=== PATIENT | female | born 1940 | race Caucasian/White ===

== ENCOUNTER 2019-07-08 14:47 | Inpatient (IN) | payer MEDICARE, BC ==
[2019-07-08] MEDS ORDERED: Fentanyl 100 MCG/2 ML VIAL ONE (15:16)
--- NOTE | 2019-07-08 15:56 | CT ---
Head CT without contrast 07/08/2019: Comparison: None HISTORY: Fall, trauma, pain TECHNIQUE: Axial CT imaging at 5 mm intervals from vertex through skull base without contrast FINDINGS: The visualized paranasal sinuses and mastoid air cells are well aerated. There is no displaced calvarial fracture. No intracranial hemorrhage, midline shift, or mass effect noted. There is atherosclerotic calcification of the distal left vertebral artery and of bilateral cavernous carotid arteries. There is mild left frontal scalp swelling. IMPRESSION: No intracranial hemorrhage or displaced calvarial fracture.
--- NOTE | 2019-07-08 16:06 | CT ---
CT of thecervical spine: 07/08/2019 COMPARISON:None available HISTORY:Trauma, pain TECHNIQUE: Serial axial CT imaging at2.5 mm intervals from theskull base through lung apices without contrast. Coronal and sagittal reformatted imaging obtained Findings:Nonspecific incompletely assessed reticulonodular opacities are noted within the lung apices , left greater than right. Nonemergent follow-up chest CT is suggested. The occipital condyles, the dens, the craniocervical junction, the atlantoaxial interspace, and the c ervicothoracic junction demonstrate no acute findings. There is multilevel degenerative change within the cervical spine. This includes posterior osteophyte at C3-4 as well as disc space narrowing with degenerative endplate change as well as anterior and posterior osteophyte at C4-5, C5-6, and C6-7. Bilateral multilevel mid and lower cervical spine facet and uncovertebral osteophyte formation noted, left greater than right. There is no prevertebral soft tissue swelling. No displaced fracture or evidence of dislocation. Ther e is scattered atherosclerotic calcification of the carotid vasculature, incompletely assessed on this exam. Impression:No acute osseous abnormality. Multiple incidental findings as detailed above.
--- NOTE | 2019-07-08 16:20 | RAD ---
NO DICTATION Dr. Gonzalez, no dictation is coming across. All your reports so far have 4473.92 minutes. Please diana ck on your end for the problem. POS: MISSY
--- NOTE | 2019-07-08 16:30 | RAD ---
Frontal radiograph chest: 07/08/2019 COMPARISON: 07/29/2016 HISTORY: Trauma FINDINGS: Reticular nodular densities are noted within bilateral lung apices, similar when compared t o the prior exam. The most conspicuous nodular density is in the lateral aspect of the right upper lobe, measuring approximately 1.3 cm in transverse dimension, slightly more conspicuous than on the p rior exam. These could be better assessed with a nonemergent follow-up chest CT. No pneumothorax or pleural fluid is noted. No focal consolidation or alveolar edema. IMPRESSION: No focal consolidation or alveolar edema. Reticulonodular densities are noted in the lung apices, right greater than left, similar when compared to the prior exam. This includes a nodular opacity within the lateral right upper lobe which appears slightly more prominent than on the prior e xam. Recommend further assessment via nonemergent chest CT.
[2019-07-08 16:39] LABS: #Basophils 0.1 thou/uL (0.0-0.2); #Eosinphils 0.1 thou/uL (0.0-0.7); #Monocytes 0.6 thou/uL (0.11-0.59); #Neutrophils 7.9 thou/uL (1.40-6.50); %Basophils 0.7 % (0.0-1.0); %Eosinophils 1.3 % (0.0-10.0); %Lymphocytes 10.5 % (21.0-51.0); %Monocytes 6.1 % (0.0-10.0); %Neutrophils 81.4 % (42.0-75.0); Mean Corpuscular HGB CONC 33.1 g/dL (32.0-36.0); Mean Corpuscular Hemoglobin 30.3 pg (27.0-31.0); Mean Corpuscular Volume 91.5 fL (78.0-98.0); Mean Platelet Volume 8.7 fL (7.4-10.4); Platelet Count 190 thou/uL (130-400); Red Blood Cell (RBC) Count 3.98 mill/uL (4.20-5.40); White Blood Cell (WBC) Count 9.7 thou/uL (4.8-10.8)
[2019-07-08 16:46] LABS: PTT 26.9 SEC (22.9-36.1); Prothrombin Time 12.9 SEC (12.0-14.7)
[2019-07-08 17:06] LABS: ALT (SGPT) 13 U/L (8-55); AST (SGOT) 20 U/L (5-34); Albumin 3.8 g/dL (3.4-4.8); Alkaline Phosphatase 55 U/L (40-110); Anion Gap 10 mmol/L (10-20); BUN (Urea Nitrogen) 20 mg/dL (9.8-20.1); Bilirubin, Total 0.7 mg/dL (0.2-1.2); Calc. Creatinine Clearance 0 mL/min (70-130); Calcium 8.6 mg/dL (7.8-10.44); Carbon Dioxide 28 mmol/L (23-31); Chloride 100 mmol/L (98-107); Estimated GFR-MDRD 66; Globulin 2.7 g/dL (2.4-3.5); Glucose 113 mg/dL (83-110); Potassium 3.6 mmol/L (3.5-5.1); Protein, Total 6.5 g/dL (6.0-8.3); Sodium 134 mmol/L (136-145)
[2019-07-08] MEDS ORDERED: traMADol HCl 50 MG TAB ONE (17:28)
[2019-07-08] MEDS ORDERED: Morphine 4 MG/ML VIAL ONE (17:29)
[2019-07-08] MEDS ORDERED: Cyclobenzaprine 10 MG TAB ONE (17:29)
[2019-07-08 17:32] LABS: Magnesium 1.7 mg/dL (1.6-2.6); Phosphorus 2.1 mg/dL (2.3-4.7)
[2019-07-08] MEDS ORDERED: Ondansetron ODT 4 MG TAB PO PRN (17:48)
[2019-07-08] MEDS ORDERED: Dextrose 5% in Water 1,000 ML IV PRN (17:48)
[2019-07-08] MEDS ORDERED: hydrALAZINE 20 MG/ML VIAL SLOW IVP PRN (17:48)
[2019-07-08] MEDS ORDERED: Dextrose 50% Abboject 50 ML SYRINGE SLOW IVP PRN (17:48)
[2019-07-08] MEDS ORDERED: Morphine 2 MG/ML SYRINGE SLOW IVP PRN (17:48)
[2019-07-08] MEDS ORDERED: Ondansetron PF 4 MG/2 ML Vial IVP PRN ×2 (17:48→18:05)
[2019-07-08] MEDS ORDERED: Bacitracin 1 PK ONE (17:55)
[2019-07-08] MEDS ORDERED: Sodium Chloride 0.9% 1,000 ML IV SCH (18:00)
[2019-07-08] MEDS ORDERED: Ibuprofen 600 MG TAB PO PRN (18:05)
[2019-07-08] MEDS ORDERED: traMADol HCl 50 MG TAB PO PRN (18:05)
[2019-07-08] MEDS ORDERED: Cyclobenzaprine 10 MG TAB PO PRN (18:06)
[2019-07-08] MEDS ORDERED: traMADol HCl 50 MG TAB PO SCH (18:30)
[2019-07-08] MEDS ORDERED: Potassium Phosphate 30 MMOL in Sodium Chloride 0.9% 500 ML IVPB SCH (18:30)
[2019-07-08] MEDS ORDERED: Acetaminophen 500 MG TAB PO SCH (18:30)
--- NOTE | 2019-07-08 19:26 | HP ---
CONSULTS: Orthopedic Surgery, Dr. Hays. CHIEF COMPLAINT: Ground level fall. HISTORY OF PRESENT ILLNESS: This is an 78-year-old female, who presented to the emergency room with left leg pain after falling in her garage. The patient states that she lives at home alone and was walking in her garage when she lost her balance due to an uneven area on the ground causing her to fall. The patient did report bumping her head on her car, but no loss of consciousness. The patient recalls the events. The patient denies any chest pain, dizziness, or shortness of breath prior to event. The patient reports she has been well, and denies any recent fever, chills, body aches, or illness. The patient ambulates without any assistance devices. The patient was evaluated in the emergency room and found to have a left distal femur fracture. Trauma Services was asked to admit the patient. Orthopedic Services was also consulted. The patient is currently awake, alert, in moderate amount of distress due to left leg pain and spasms. The patient last had anything to eat or drink at 11 today. REVIEW OF SYSTEMS: A 10-point review of systems is negative unless otherwise indicated in the above HPI. PAST MEDICAL HISTORY: Atrial fibrillation with multiple ablations, hypertension , hypothyroidism, and recent removal of melanoma on her posterior scalp. PAST SURGICAL HISTORY: Back surgery and cardiac ablation. SOCIAL HISTORY: The patient lives in her home alone. Retired nurse. Denies any illicit drug use. The patient is a former smoker, in which she quit more than 10 years ago. Denies alcohol use. ALLERGIES: NO KNOWN DRUG ALLERGIES. MEDICATIONS: 1. Aspirin 81 mg daily. 2. Synthroid 75 mcg once a day. 3. Metoprolol extended release 50 mg at bedtime. 4. Hydrochlorothiazide 25 mg once a day. 5. Crestor 10 mg daily. 6. Zyrtec 10 mg daily. PHYSICAL EXAMINATION: VITAL SIGNS: Blood pressure 160/83, pulse 80, respirations 16, temperature 97.6 , and SpO2 96% on room air. GENERAL: Well-appearing 78-year-old female, moderate amount of distress due to left thigh pain. HEENT AND NECK: Normocephalic. Left forehead contusion and abrasion. Midface stable. Mucous membranes moist. No cervical spine tenderness. Normal range of motion of neck. Cervical collar removed. Trachea midline. Tiny abrasion also to the left zygomatic region. RESPIRATORY: Equal chest rise and fall. Bilateral breath sounds clear. No wheezing, rales, or rhonchi. CARDIOVASCULAR: Regular rate, regular rhythm. No pedal edema. No murmurs. ABDOMEN: Soft, nontender, and nondistended. Pelvis stable. EXTREMITIES: Moves all extremities. Strength 5/5. Distal pulses intact. Normal sensation in all extremities. Tenderness to mid left thigh with some shortening and external rotation. NEUROLOGIC: No focal deficits, GCS 15. LABORATORY DATA: WBC 9.7, RBC 3.98, hemoglobin 12.0, hematocrit 36.4, and platelets 190. Sodium 134, potassium 3.6, chloride 100, carbon dioxide 28, BUN 20, creatinine 0.83, estimated GFR 66, glucose 113, calcium 8.6, phosphorus 2.1, magnesium 1.7 , AST 20, ALT 13, and albumin 3.8. DIAGNOSTICS: 12-lead EKG, normal sinus rhythm. Chest x-ray, impression; reticular nodule densities are noted within the bilateral lung apices, similar when compared to prior exam. There is a 1.3 cm transverse dimension nodular density in the lateral aspect of the right upper lobe, slightly more prominent than on prior exam. No focal consolidation or alveolar edema. Recommended further assessment via nonemergent chest CT. Brain CT; impression, no intracranial hemorrhage or displaced calvarial fracture. There is mid left frontal scalp swelling. Cervical spine CT, no acute osseous abnormalities. There are multiple incidental findings, posterior osteophyte at C3-4 as well as disk space narrowing of degenerative endplate change as well as anterior and posterior osteophyte at C4- C5, C5-C6 and C6-C7. There is no prevertebral soft tissue swelling. No displaced fracture or evidence of dislocation. Left femur x-ray; impression, left distal femur fracture pending official read. IMPRESSION: 1. Status post ground level fall. 2. Left spiral distal femur fracture. 3. Acute traumatic pain. 4. Hyponatremia. 5. Incidental findings, 1.3 cm nodular on the right upper lobe. 6. History of hypertension; hypothyroidism; degenerative joint disease; atrial fibrillation, treated with ablation; and melanoma of the scalp. PLAN: Admit the patient to the surgical floor. The patient will be n.p.o. after midnight with plans for OR tomorrow with Orthopedic Surgery. Maintenance IV fluids, normal saline 100 an hour. We will restart the patient's home medications once all medications have been reconciled. Replace electrolytes. Pain regimen and bowel regimen. PT and OT consult to evaluate and treat postop. We will instruct the patient on the need for a nonemergent chest CT due to findings on her chest x- ray. The plan was discussed with the attending who agrees. Job ID: [id number] MTDD
--- NOTE | 2019-07-08 19:47 | CT ---
CT LEFT LOWER EXTREMITY: 07/08/19 Multiple axial tomograms obtained through the left femur from hip to left knee. INDICATIONS: Femur fracture. The hip appears intact with degenerative changes. There is an obliquely oriented displaced, mildly comminuted fracture involving the distal femur. IMPRESSION: Obliquely oriented mildly comminuted fracture distal femur. Fracture is imaged in all three planes fo r orthopedic evaluation. POS: [facility]
[2019-07-08] MEDS: Gabapentin 100 MG CAP PO SCH (20:53)
[2019-07-08] MEDS: Senokot S 8.6-50 MG TAB PO SCH (20:53)
[2019-07-08 23:21] VITALS: BMI 34.0
--- NOTE | 2019-07-08 23:31 | CON ---
DATE OF CONSULTATION: REASON FOR CONSULTATION: Left distal femur fracture. CHIEF COMPLAINT: Left knee pain. HISTORY OF PRESENT ILLNESS: Ms. Munoz is an 78-year-old female who was transferred to the emergency department via EMS with left leg pain. The patient reported that she had a ground level fall at home. She reports that the patient was walking in her garage and upon entering the garage, there was a small step up, her foot caught the edge of the step and she fell on to her left lower extremity. She had immediate left lower extremity pain, unable her to rise to a standing position. The patient does live alone and EMS was called and she was transferred to the emergency department. Upon evaluation in the emergency department, it was found she had a left lower extremity fracture involving the left distal femur. Orthopedics was consulted. The patient was seen and evaluated where H and P was performed. ALLERGIES: NO KNOWN DRUG ALLERGIES. MEDICATIONS: For hypothyroidism, mild hypertension. PAST MEDICAL HISTORY: Hypothyroidism, borderline hypertension. PAST SURGICAL HISTORY: 1. Lumbar spine surgery. 2. Mohs surgery for melanoma excision of the head. 3. 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 SOCIAL HISTORY: She lives alone, ambulates with assistive device. She is a retired nurse. Denies smoking, alcohol, or illicit drug use. FAMILY HISTORY: Noncontributory. REVIEW OF SYSTEMS: Complete 10 systems reviewed is negative with the exception of left thigh pain. PHYSICAL EXAMINATION: GENERAL: Alert and oriented x3, in no acute distress. RESPIRATORY: Nonlabored. HEENT: Nontraumatic and normocephalic. CARDIOVASCULAR: Regular rate. ABDOMEN: Soft, nontender, nondistended. MUSCULOSKELETAL: Evaluation of the left lower extremity demonstrates a shortened externally rotated left lower extremity. She has swelling of the left thigh. No open wound is noted. She has tenderness to palpation around the left knee. Passive range of motion of left hip and knee were not examined. She has positive FHL/ EHL/ and peroneal____ activation of the left lower extremity. Evaluation of the right lower extremity demonstrates no tenderness to palpation or pain on passive range of motion of the right hip, knee, ankle, or foot. Evaluation of bilateral upper extremities demonstrates no tenderness to palpation or pain on passive range of motion of bilateral shoulders, elbows, wrists, or hands. No open wounds, lacerations, or abrasions noted along bilateral upper extremity. NEUROVASCULAR: Sensation intact to light touch in L4 through S1 dermatomes of bilateral lower extremities. She had DP and PT pulses. Sensation intact to light touch in radial, ulnar, and median nerve distributions of bilateral upper extremities. 2+ radial pulses. IMAGING DATA: X-rays of the left femur demonstrates a spiral left distal femur fracture. No proximal fracture is noted. Chest x-ray demonstrates no focal consolidations. There is opacity within the lateral upper lobe, appears to be slightly more prominent than prior exams. CT of the head demonstrates no intracranial hemorrhage or fractures. CT of the C-spine demonstrates no acute abnormalities. X-ray of the left hip demonstrates no acute bony abnormalities of the left hip, evidence of degenerative changes of the left hip noted. LABORATORY DATA: Hemoglobin 12.0, white count is 9.7, hematocrit 36.4, platelets 190. Sodium is 134, potassium 3.6, chloride 100, bicarb 28, BUN 20, creatinine 0.83, glucose 113. PT 12.9, INR 1.0. ASSESSMENT AND PLAN: An 78-year-old female status post ground level fall with a left distal femur fracture. She will be admitted by the Trauma Services for medical optimization. We will plan for surgical intervention once the patient is medically optimized. We will obtain CT scan of the left lower extremity and ensure she does not have violation into the knee joint. As long as the patient is medically optimized, we will plan for surgical intervention in the next available opportunity. Our plans were discussed in detail with the patient. She verbalized understanding and wants to proceed. Job ID: [id number] [facility]
[2019-07-08] MEDS ORDERED: Non-Formulary Item 1 EACH (Fluticasone/Vilanterol [Breo Ellipta] 1 INH) INH PRN (23:54)
[2019-07-08] MEDS ORDERED: Mometasone 100 MCG/Formoterol 5 MCG 120 PUFF INHALER INH PRN (23:54)
[2019-07-09] MEDS: Acetaminophen 500 MG TAB PO SCH ×5 (00:13→20:50)
--- NOTE | 2019-07-09 00:13 | PRG ---
DATE OF SERVICE: 07/08/2019 SUBJECTIVE: The patient was seen this evening during rounds. She was lying in bed with no signs of acute distress. She reported her pain is well controlled and she is tolerating food. OBJECTIVE: VITAL SIGNS: Temperature 97.6, pulse 81, respirations 18, oxygen saturation 98% on room air, and blood pressure 155/87. GENERAL: Well-appearing elderly female, lying in bed with no signs of acute distress. PULMONARY: Equal chest rise and fall. No signs of acute respiratory distress. ASSESSMENT: 1. Status post ground level fall. 2. Left distal femur fracture. 3. History of hypertension, hypothyroidism, atrial fibrillation status post ablation, scalp melanoma, and previous back surgeries. PLAN: Continue current diet and n.p.o. at midnight. Continue IV fluids for a total of 1 L and then discontinue. We will complete the patient's med rec and restart her home medications as clinically indicated. She is to go to the OR tomorrow for fixation of her distal left femur fracture. Postoperatively, she will work with Physical and Occupational Therapy and likely need placement in acute rehab facility. Job ID: [id number] [facility]
[2019-07-09] MEDS: traMADol HCl 50 MG TAB PO SCH ×5 (00:14→20:51)
--- NOTE | 2019-07-09 04:56 | HP ---
ADDENDUM: CHIEF COMPLAINT: Left leg pain. HISTORY: Ms. Munoz is an 78-year-old woman, who caught her foot on uneven area of the janeen in garage and fell. She struck her head on the way down, but did not lose consciousness and had immediate pain in her left leg after the fall. She was found to have a comminuted distal left femur fracture. She is currently comfortable as long as she keeps the leg completely still. She has some bruising to her scalp, but head CT was negative and she feels mentally clear. PAST MEDICAL HISTORY: She does have a past medical history of hypertension and atrial fibrillation, and a recent removal of a melanoma from her scalp. PAST SURGICAL HISTORY: Includes back surgery, hysterectomy many years ago, multiple cardiac ablations and Mohs surgery for her melanoma. SOCIAL HISTORY: She is a former smoker, but does not drink or use illicit drugs. She lives alone, but has a daughter who lives nearby. ALLERGIES: SHE HAS NO KNOWN DRUG ALLERGIES. MEDICATIONS: Include; 1. Aspirin. 2. Synthroid. 3. Metoprolol. 4. Hydrochlorothiazide. 5. Crestor. 6. Zyrtec. She is not on any other blood thinners. REVIEW OF SYSTEMS: 10-system review of systems is negative except per HPI. FAMILY HISTORY: Noncontributory. PHYSICAL EXAMINATION: Complete physical examination was performed. VITAL SIGNS: In the emergency room are unremarkable. HEENT/NECK: Neck is supple without lymphadenopathy or thyroid nodules. She has some mild left frontal scalp swelling. Pupils are equal. No malocclusion. BACK: No spine tenderness. HEART: Regular. I do not appreciate any rubs or gallops, but she does have a soft systolic murmur at the left upper sternal border. LUNGS: Clear to auscultation bilaterally. ABDOMEN: Soft, nontender, nondistended with a healed lower midline scar. EXTREMITIES: Warm, well perfused with normal dorsalis pedis pulses bilaterally. She has normal sensation and movement in her left foot. NEUROLOGIC: She has no focal neural deficits. PSYCHIATRIC: She is alert, oriented, and appropriate. LABORATORY DATA: Reviewed and are basically unremarkable. Her BUN and creatinine are 20 and 0.83, which are normal. Phosphorus is slightly low at 2.1. CTs including brain and cervical spine CTs and plain films of the chest, pelvis, knee and a lower extremity CT revealed the above-mentioned distal left femur fracture. She was also incidentally noted to have a density in the right greater than left lung apices and a right upper lobe opacity, which appears slightly more prominent. She also had incidental findings of chronic changes in the cervical spine, but no acute fracture or subluxation. ASSESSMENT: Distal left femur fracture, incidentally noted lung densities and mild closed head injury. She is planned to be taken to the operating room tomorrow for open reduction and internal fixation of her femur fracture. She is on maintenance IV fluids, pain regimen, as well as a bowel regimen. She takes usually a half dose of MiraLAX daily at home. Postoperatively, she will receive physical therapy. The patient's wish is to go home with her daughter rather than rehab or care home, but this will depend on her progress with physical therapy. She has been informed of her chest x-ray findings, and need for nonemergent chest CT as an outpatient. Job ID: [id number] MTDD
[2019-07-09] MEDS: Levothyroxine Sodium 75 MCG TAB PO SCH (05:28)
[2019-07-09 06:02] LABS: #Eosinphils 0.1 thou/uL (0.0-0.7); #Lymphocytes 0.9 thou/uL (1.20-3.40); #Monocytes 0.5 thou/uL (0.11-0.59); #Neutrophils 6.2 thou/uL (1.40-6.50); %Basophils 0.5 % (0.0-1.0); %Eosinophils 0.7 % (0.0-10.0); %Lymphocytes 12.2 % (21.0-51.0); %Monocytes 6.8 % (0.0-10.0); %Neutrophils 79.9 % (42.0-75.0); Hemoglobin 10.7 g/dL (12.0-16.0); Mean Corpuscular HGB CONC 33.1 g/dL (32.0-36.0); Mean Corpuscular Hemoglobin 30.2 pg (27.0-31.0); Mean Platelet Volume 9.4 fL (7.4-10.4); Platelet Count 180 thou/uL (130-400); RBC Distribution Width 11.9 % (11.5-14.5); Red Blood Cell (RBC) Count 3.55 mill/uL (4.20-5.40); White Blood Cell (WBC) Count 7.8 thou/uL (4.8-10.8)
[2019-07-09 06:24] LABS: Anion Gap 10 mmol/L (10-20); BUN (Urea Nitrogen) 19 mg/dL (9.8-20.1); Calc. Creatinine Clearance 104 mL/min (70-130); Calcium 8.7 mg/dL (7.8-10.44); Carbon Dioxide 28 mmol/L (23-31); Chloride 98 mmol/L (98-107); Estimated GFR-MDRD 85; Glucose 118 mg/dL (83-110); Magnesium 1.7 mg/dL (1.6-2.6); Potassium 3.6 mmol/L (3.5-5.1); Sodium 132 mmol/L (136-145)
[2019-07-09 06:41] LABS: Phosphorus 3.4 mg/dL (2.3-4.7)
[2019-07-09] MEDS: Hydrochlorothiazide 25 MG TAB PO SCH (07:11)
[2019-07-09] MEDS: Gabapentin 100 MG CAP PO SCH ×3 (07:11→20:50)
[2019-07-09] MEDS: Loratadine 10 MG TAB PO SCH (07:11)
[2019-07-09] MEDS: Senokot S 8.6-50 MG TAB PO SCH ×3 (07:12→20:50)
[2019-07-09] MEDS: Polyethylene Glycol 3350 17 GM Packet PO SCH (07:12)
[2019-07-09] MEDS ORDERED: Magnesium 2 GM/50 ML 2 GM in Premix Bag 1 BAG IVPB SCH (07:30)
[2019-07-09] MEDS ORDERED: Phenylephrine 10 MG/ML VIAL ONE (07:51)
[2019-07-09] MEDS ORDERED: Fentanyl 100 MCG/2 ML VIAL ONE (07:51)
[2019-07-09] MEDS: Metoprolol Tartrate 50 MG TAB PO SCH (08:05)
[2019-07-09] MEDS ORDERED: Sodium Chloride 0.9% 100 ML ONE (08:29)
[2019-07-09] MEDS ORDERED: Tranexamic Acid 1,000 MG/10 ML VIAL ONE (08:29)
[2019-07-09] MEDS ORDERED: Cepastat Lozenges 1 LOZ PO PRN (08:39)
[2019-07-09] MEDS ORDERED: Ondansetron ODT 4 MG TAB PO PRN (08:39)
[2019-07-09] MEDS ORDERED: Milk Of Magnesia 30 ML UDCUP PO PRN (08:39)
[2019-07-09] MEDS ORDERED: Ondansetron PF 4 MG/2 ML Vial IVP PRN (08:39)
[2019-07-09] MEDS ORDERED: Acetaminophen 325 MG TAB PO PRN (08:39)
[2019-07-09] MEDS ORDERED: Fleet Enema 133 ML BOT PR PRN (08:39)
[2019-07-09] MEDS ORDERED: Bisacodyl 10 MG SUPP PR PRN (08:39)
[2019-07-09] MEDS ORDERED: PACU-Morphine 4MG/ML VIAL SLOW IVP PRN (09:29)
[2019-07-09] MEDS ORDERED: Promethazine HCl 25 MG/ML VIAL IM PRN (09:29)
[2019-07-09] MEDS ORDERED: Ondansetron HCl/PF 4 MG/2 ML Vial IVP PRN (09:29)
[2019-07-09] MEDS ORDERED: Promethazine HCl 25 MG/ML VIAL SLOW IVP PRN (09:29)
[2019-07-09] MEDS: Ferrous Gluconate 324 MG TAB PO SCH ×2 (09:39→20:49)
[2019-07-09] MEDS: Multivitamin W/ Minerals 1 TAB PO SCH (09:39)
[2019-07-09] MEDS ORDERED: Bupivacaine 0.25% HCL 30 ML VIAL ONE (10:45)
--- NOTE | 2019-07-09 10:57 | RAD ---
INTRAOPERATIVE IMAGING OF THE LEFT FEMUR: 07/09/2019 HISTORY: ORIF. COMPARISON: None. FINDINGS: Multiple intraoperative images were provided (10 total images), demonstrating an obliquely oriented f racture of the left femur, treated with an intramedullary yayo with distal and proximal interlocking s crews. IMPRESSION: Left femur fracture status post open reduction and internal fixation. POS: [facility]
[2019-07-09] MEDS ORDERED: Bupivacaine/Epinephrine 0.25% 30 ML VIAL ONE (10:58)
[2019-07-09] MEDS ORDERED: Lidocaine 1% PF 5 ML VIAL ONE (11:56)
[2019-07-09] MEDS ORDERED: Dexamethasone 20 MG/5 ML VIAL ONE (11:56)
[2019-07-09] MEDS ORDERED: Ondansetron PF 4 MG/2 ML Vial ONE (11:56)
[2019-07-09] MEDS ORDERED: Glycopyrrolate 0.2 MG/ML 5 ML SYRINGE ONE (11:56)
[2019-07-09] MEDS ORDERED: PROPOFOL 200 MG/20 ML VIAL ONE (11:56)
[2019-07-09] MEDS ORDERED: Rocuronium Bromide 10 MG/ML (10ML VIAL) ONE (11:56)
--- NOTE | 2019-07-09 12:33 | RAD ---
LEFT FEMUR TWO VIEWS: HISTORY: Femur fracture status post ORIF. COMPARISON: 07/09/19 FINDINGS: Two views of the left femur show the patient to be status post retrograde intramedullary yayo fixation of a spiral fracture of the distal femoral diaphysis. Overlying skin staple and soft tissue swelling are seen. No perihardware lucency is present. IMPRESSION: Status post open reduction and internal fixation of left femur fracture. POS: [facility]
--- NOTE | 2019-07-09 14:20 | PRG ---
DATE OF SERVICE: 07/09/2019 SUBJECTIVE: The patient was seen this morning during morning rounds. She had returned from the operating room. The patient had her left distal femur repair by Dr. Holliday. The patient is currently resting comfortably and reports her pain is well controlled at this time. The patient is tolerating liquids at this time. The patient denies any overnight events. OBJECTIVE: VITAL SIGNS: Temperature 98.3, pulse 70, respirations 20, SpO2 of 94% on room air, and blood pressure 95/61. GENERAL: Well-appearing elderly female, awake, alert, in no distress. RESPIRATORY: Equal chest rise and fall, no respiratory distress. Bilateral breath sounds clear. CARDIAC: Regular rate, regular rhythm. ABDOMEN: Soft, nontender, and nondistended. EXTREMITIES: Moves all extremities. No focal deficits. Left lower extremity in a knee immobilizer. NEUROLOGIC: No focal deficits. LABORATORY DATA: WBC 7.83, RBC 3.55, hemoglobin 10.7, and hematocrit 32.4. Sodium 132, potassium 3.6, chloride 98, BUN 19, creatinine 0.67, estimated GFR 85, glucose 118, calcium 8.7, phosphorus 3.4, and magnesium 1.7. IMPRESSION: 1. Status post ground level fall. 2. Left spiral distal femur fracture, postop repair. 3. Acute traumatic pain. 4. Hyponatremia. 5. Incidental finding of a 1.3 cm nodule on the right upper lobe. 6. History of hypertension; hypothyroidism; degenerative joint disease; atrial fibrillation, treated with ablation; and melanoma of the scalp. PLAN: Increase diet as tolerated. Pain regimen. Replace electrolytes. We will have PT and OT work with the patient today. Plan has been discussed with the patient who agrees. Job ID: [id number]
[2019-07-09] MEDS: CEFAZOLIN 2 GM in Premix Bag 1 BAG IVPB SCH (16:04)
[2019-07-09] MEDS: Metoprolol Tartrate 25 MG TAB PO SCH (20:51)
[2019-07-09] MEDS ORDERED: Rosuvastatin 10 MG TAB PO SCH (21:00)
--- NOTE | 2019-07-09 21:31 | PRG ---
DATE OF SERVICE: 07/09/2019 SUBJECTIVE: The patient was seen this evening during rounds. She is postoperative day 0 after a left distal femur fracture. The patient reports her pain is well controlled. She is tolerating her diet, voiding without difficulties. OBJECTIVE: VITAL SIGNS: Temperature 98.3, pulse 95, respirations 18, oxygen saturation 95% on room air, blood pressure 112/71. GENERAL: Well-appearing elderly female, lying in bed with no signs of acute distress. PULMONARY: Equal chest rise and fall. No signs of acute respiratory distress. ASSESSMENT: 1. Status post ground level fall. 2. Left distal femur fracture, status post repair. 3. History of hypertension, hypothyroidism, atrial fibrillation status post ablation, scalp melanoma, and history of back surgeries. PLAN: Continue current heart healthy diet. Continue 1 L free water restriction. Continue [place] overnight. Discontinue in the morning. Repeat blood work in the morning. We will start chemo DVT prophylaxis tomorrow. Continue home medications as clinically indicated. The patient will likely need placement in acute rehab facility. Job ID: [id number]
[2019-07-10] MEDS: Acetaminophen 500 MG TAB PO SCH ×4 (01:42→20:17)
[2019-07-10] MEDS: CEFAZOLIN 2 GM in Premix Bag 1 BAG IVPB SCH ×2 (01:43→15:58)
[2019-07-10] MEDS: traMADol HCl 50 MG TAB PO SCH ×4 (02:02→20:18)
[2019-07-10 05:07] LABS: #Lymphocytes 1.1 thou/uL (1.20-3.40); #Monocytes 1.1 thou/uL (0.11-0.59); #Neutrophils 7.2 thou/uL (1.40-6.50); %Eosinophils 0.2 % (0.0-10.0); %Lymphocytes 11.2 % (21.0-51.0); %Monocytes 11.7 % (0.0-10.0); %Neutrophils 76.9 % (42.0-75.0); Hemoglobin 8.5 g/dL (12.0-16.0); Mean Corpuscular HGB CONC 34.8 g/dL (32.0-36.0); Mean Corpuscular Hemoglobin 31.5 pg (27.0-31.0); Mean Corpuscular Volume 90.6 fL (78.0-98.0); Mean Platelet Volume 8.6 fL (7.4-10.4); Platelet Count 143 thou/uL (130-400); RBC Distribution Width 11.9 % (11.5-14.5); Red Blood Cell (RBC) Count 2.69 mill/uL (4.20-5.40); White Blood Cell (WBC) Count 9.3 thou/uL (4.8-10.8)
[2019-07-10] MEDS: Levothyroxine Sodium 75 MCG TAB PO SCH (05:18)
[2019-07-10 05:35] LABS: Anion Gap 8 mmol/L (10-20); BUN (Urea Nitrogen) 14 mg/dL (9.8-20.1); Calc. Creatinine Clearance 100 mL/min (70-130); Calcium 7.9 mg/dL (7.8-10.44); Carbon Dioxide 28 mmol/L (23-31); Chloride 98 mmol/L (98-107); Estimated GFR-MDRD 81; Glucose 120 mg/dL (83-110); Phosphorus 2.5 mg/dL (2.3-4.7); Potassium 3.9 mmol/L (3.5-5.1); Sodium 130 mmol/L (136-145)
[2019-07-10] MEDS ORDERED: Sodium Chloride 1 GM TAB PO SCH (07:45)
[2019-07-10] MEDS: Polyethylene Glycol 3350 17 GM Packet PO SCH (08:39)
[2019-07-10] MEDS: Senokot S 8.6-50 MG TAB PO SCH ×2 (08:39→20:17)
[2019-07-10] MEDS: Ferrous Gluconate 324 MG TAB PO SCH ×2 (08:40→20:17)
[2019-07-10] MEDS: Multivitamin W/ Minerals 1 TAB PO SCH (08:41)
[2019-07-10] MEDS: Loratadine 10 MG TAB PO SCH (08:41)
[2019-07-10] MEDS: Hydrochlorothiazide 25 MG TAB PO SCH (08:41)
[2019-07-10] MEDS: Metoprolol Tartrate 50 MG TAB PO SCH (08:41)
[2019-07-10] MEDS: Gabapentin 100 MG CAP PO SCH ×3 (08:42→20:17)
[2019-07-10] MEDS ORDERED: Ergocalciferol 1.25 MG(50,000 UNITS) CAP PO SCH (09:00)
[2019-07-10] MEDS ORDERED: Scopolamine 1.5 mg/72 hour Patch TD SCH (10:00)
--- NOTE | 2019-07-10 10:58 | PRG ---
DATE OF SERVICE: 07/10/2019 SUBJECTIVE: The patient was seen and evaluated in her hospital room. Pain is well controlled with p.o. medications. No acute complaints at this time. No adverse events overnight. OBJECTIVE: VITAL SIGNS: Stable. The patient is afebrile. MUSCULOSKELETAL: Evaluation of lower extremity demonstrates dressings clean, dry, intact. She has positive FHL/EHL/peroneal muscle activation of both lower extremities. No excessive swelling of the calf or foot. No pain on passive stretch of the digits. LABORATORY DATA: White blood cell count 9.3, hemoglobin 8.5, hematocrit 24.4, platelets 143. Chemistry; sodium 130, potassium 3.9, chloride 98, bicarb 28, BUN 14, creatinine 0.7. Vitamin D level is low at 25. ASSESSMENT/PLAN: An 78-year-old female status post retrograde nailing of the left distal femur fracture. We will allow her 80% weightbearing on left lower extremity. She will continue Ancef today. Lovenox for DVT prophylaxis. The patient will need inpatient rehab versus home health physical therapy. We discussed this with the patient and her daughter in detail. The patient is medically optimized and placement has been decided. We can discharge. We will see her in clinic in 2 weeks' time. Job ID: [id number]
[2019-07-10] MEDS ORDERED: traMADol HCl 50 MG TAB PO PRN ×3 (13:46→14:30)
--- NOTE | 2019-07-10 14:03 | PRG ---
DATE OF SERVICE: 07/10/2019 SUBJECTIVE: This is an 78-year-old female, postoperative day #1 repair of her left distal femur fracture. The patient's pain is currently well controlled. The patient had some nausea and dizziness when working with Physical Therapy earlier this morning. Otherwise, the patient is tolerating a regular diet and voices no complaints or concerns. OBJECTIVE: VITAL SIGNS: Temperature 98.6, pulse 95, respirations 20, SpO2 of 93% on room air, and blood pressure 122/63. GENERAL: Well-appearing elderly female, awake and alert, in no distress. RESPIRATORY: Equal chest rise and fall, no respiratory distress. Bilateral breath sounds clear. ABDOMEN: Soft, nontender, nondistended. EXTREMITIES: Moves all extremities. Dressing to the left lower extremity is clean, dry, and intact. No pedal edema. NEUROLOGIC: No focal deficits. LABORATORY DATA: WBC 9.3, RBC 2.69, hemoglobin 8.5, hematocrit 24.2, and platelets 143. Sodium 130, potassium 3.9, chloride 98, BUN 14, creatinine 0.70, glucose 120, and calcium 7.9. Phosphorus 2.5. Magnesium 2.0. IMPRESSION: 1. Status post ground-level fall. 2. Left distal femur fracture, postoperative for repair. 3. Hyponatremia. 4. Postoperative anemia. 5. Incidental finding of a 1.3 cm nodule in the right upper lung lobe. 6. History of hypertension. 7. Hypothyroidism. 8. Degenerative joint disease. 9. Atrial fibrillation. 10. Melanoma. PLAN: Free water restriction 1 L daily, the patient may have unlimited Gatorade. We will supplement with salt tablets for the patient's hyponatremia. We will continue the patient's iron and vitamin C for postoperative anemia. We will add a scopolamine patch for nausea and dizziness. Continue to monitor urinary output. We will repeat hemoglobin and hematocrit in the morning. If stable, we will start the patient on VTE prophylaxis. Continue physical and occupational therapy depending on how the patient does with ambulating. The patient may be able to go home with home health and family assistance versus inpatient rehab. The plan has been discussed with the attending. Job ID: [id number] MTDD
[2019-07-10] MEDS ORDERED: Ondansetron ODT 4 MG TAB PO PRN (14:30)
[2019-07-10] MEDS ORDERED: Ondansetron PF 4 MG/2 ML Vial IVP PRN (14:30)
[2019-07-10] MEDS ORDERED: Acetaminophen 325 MG TAB PO PRN (14:30)
[2019-07-10] MEDS ORDERED: Fleet Enema 133 ML BOT PR PRN (14:30)
[2019-07-10] MEDS ORDERED: Milk Of Magnesia 30 ML UDCUP PO PRN (14:30)
[2019-07-10] MEDS ORDERED: Cepastat Lozenges 1 LOZ PO PRN (14:30)
[2019-07-10] MEDS ORDERED: Bisacodyl 10 MG SUPP PR PRN (14:30)
[2019-07-10] MEDS: Metoprolol Tartrate 25 MG TAB PO SCH (20:17)
--- NOTE | 2019-07-10 22:18 | PRG ---
DATE OF SERVICE: 07/10/2019 SUBJECTIVE: The patient was seen this evening during rounds. She was awake and alert and reported her pain is well controlled. She did work with PT today and reported she felt a little bit weak and dizzy upon standing, that has resolved since that time. She states her pain is well controlled. OBJECTIVE: VITAL SIGNS: Temperature 98.5, pulse 109, respirations 16, oxygen saturation 94% on room air, blood pressure 117/69. GENERAL: Well-appearing elderly female, lying in bed with no signs of acute distress. PULMONARY: Equal chest rise and fall. No signs of acute respiratory distress. ASSESSMENT: 1. Status post ground level fall. 2. Left distal femur fracture, status post repair. 3. History of hypertension, hypothyroidism, atrial fibrillation status post ablation, scalp malignancy, and history of back surgeries. PLAN: Continue current diet and pain regimen. Continue physical and occupational therapy. Continue 1 L free water restriction for hyponatremia. Discontinue [place] tomorrow. Start DVT prophylaxis with Lovenox tomorrow. Repeat blood work in the morning. The patient is pending placement in acute rehab facility. Job ID: [id number]
[2019-07-11] MEDS: CEFAZOLIN 2 GM in Premix Bag 1 BAG IVPB SCH (00:17)
[2019-07-11] MEDS: Acetaminophen 500 MG TAB PO SCH ×3 (02:48→13:39)
[2019-07-11] MEDS: traMADol HCl 50 MG TAB PO SCH ×3 (02:49→13:40)
[2019-07-11] MEDS: Levothyroxine Sodium 75 MCG TAB PO SCH (05:40)
[2019-07-11 05:41] LABS: Anion Gap 8 mmol/L (10-20); BUN (Urea Nitrogen) 11 mg/dL (9.8-20.1); Calc. Creatinine Clearance 107 mL/min (70-130); Calcium 8.2 mg/dL (7.8-10.44); Carbon Dioxide 29 mmol/L (23-31); Chloride 102 mmol/L (98-107); Estimated GFR-MDRD 88; Glucose 106 mg/dL (83-110); Phosphorus 2.1 mg/dL (2.3-4.7); Potassium 3.9 mmol/L (3.5-5.1); Sodium 135 mmol/L (136-145)
[2019-07-11 05:44] LABS: Hemoglobin 8.1 g/dL (12.0-16.0); Mean Corpuscular HGB CONC 33.7 g/dL (32.0-36.0); Mean Corpuscular Hemoglobin 31.2 pg (27.0-31.0); Mean Corpuscular Volume 92.7 fL (78.0-98.0); Mean Platelet Volume 9.2 fL (7.4-10.4); Platelet Count 146 thou/uL (130-400); RBC Distribution Width 12.1 % (11.5-14.5); Red Blood Cell (RBC) Count 2.59 mill/uL (4.20-5.40); White Blood Cell (WBC) Count 7.4 thou/uL (4.8-10.8)
[2019-07-11 06:14] LABS: Band 4 % (5-11); Eosinophils 1 % (0-10); Lymphocytes 14 % (21-51); MDiff Complete? YES; Monocytes 7 % (0-10); Neutrophil 74 % (42-75)
--- NOTE | 2019-07-11 07:16 | RAD ---
LEFT FEMUR: 07/08/19 AP and lateral views. Total of four images. INDICATION: Trauma. Degenerative changes at the hip with spurring from the femoral head. There is a spiral type fracture with mild displacement involving the distal femur. IMPRESSION: Fractured distal left femur. POS: AGW
--- NOTE | 2019-07-11 07:20 | RAD ---
AP PELVIS: 07/08/19 HISTORY: Trauma. Pelvis appears intact. Femoral necks are not adequately evaluated due to positioning. Degenerative c hanges at both hips. IMPRESSION: No acute pelvic fracture identified. POS: AGW
--- NOTE | 2019-07-11 07:21 | RAD ---
LEFT KNEE: 07/08/19 Three views. HISTORY: Trauma. There is a spiral type mildly displaced fracture involving the distal femur diaphysis. Degenerative c hanges at the knee. IMPRESSION: Fracture distal femur. POS: AGW
--- NOTE | 2019-07-11 07:46 | OP ---
DATE OF PROCEDURE: 07/09/2019 PREOPERATIVE DIAGNOSIS: Left comminuted distal femur fracture. POSTOPERATIVE DIAGNOSIS: Left comminuted distal femur fracture. PROCEDURE PERFORMED: Retrograde intramedullary nailing of a left distal femur fracture. ANESTHESIA: General. DRAINS: None. TOURNIQUET: None. COMPLICATIONS: None. ESTIMATED BLOOD LOSS: 200 mL. IMPLANTS: Synthes retrograde femoral nail with distal blade and interlocking screw and 2 proximal interlocking screws. SPECIMENS: None. INDICATIONS FOR PROCEDURE: Ms. Munoz is an 78-year-old female who presented to the emergency department via an EMS after a ground-level fall yesterday. X-rays in the emergency department demonstrated a left distal femur fracture that was displaced. The patient was seen and evaluated in the hospital. Risks, benefits, and alternatives of conservative versus surgical intervention were discussed in detail. In light of the coronavirus pandemic and need to only do urgent and emergent surgeries, we had a long discussion of the risks, benefits, and alternatives of surgical intervention. Given the instability of her left lower extremity and need to weightbear both for functional purposes in addition to reducing morbidity and mortality from reducing the incidence of urinary tract infections, pneumonias, DVTs, and additional complications from nonoperative and nonweightbearing on the left lower extremity, it was recommended she undergo operative fixation. Risks and benefits again were explained in regard to the surgical procedure. She verbalized understanding and wanted to proceed. She was admitted by the trauma service and medically optimized for surgical intervention this morning. The patient was seen in the preoperative area today. Risks, benefits, and alternatives of procedure were again reviewed. She verbalized understanding and wanted to proceed. Left thigh was marked as correct operative site. PROCEDURE IN DETAIL: The patient was brought back to the operative suite, underwent general anesthetic on the hospital bed, and transferred over to the surgical table in supine position. At that point, we prepped and draped the left lower extremity. A formal time-out was conducted, indicating correct procedure, correct site, and correct patient. All were in agreement. She received 2 g o Ancef prior to start of procedure. At that point, we made a longitudinal incision over the lateral aspect of the distal femur. We dissected through the IT band, elevated the musculature up bluntly to palpate the fracture site. We obtained a bone hook along the medial fragment in addition to a pointed reduction clamp. With closed manipulation and traction, we clamped the fracture in acceptable alignment. Once the fracture was acceptable in alignment, at that point we turned our attention to the retrograde nailing. We made a 3 cm longitudinal incision just medial to the patellar tendon. We bluntly dissected down to the intercondylar notch. A terminally threaded guide pin was introduced in the distal femur both in the central aspect of the bone on AP and lateral planes. We then opened with an opening reamer. A 3000-mm ball-tipped guide yayo was introduced just proximal to the lesser trochanter. We then sequentially reamed up with the fracture reduced from a size 8 to a size 14 mm reamer. We decided to go with a 13 mm x 400 mm Synthes retrograde nail. At that point, we placed a nail across the fracture site, gently tapping it just proximal to the lesser trochanter. Once the nail was in appropriate position, we again checked the fracture. We still had great alignment of the fracture itself. At that point, we placed a small stab incision on the distal lateral thigh, dissected down to bone gently and bluntly. We then placed a distal interlocking screw. We then made another slightly larger incision on the distal lateral thigh, dissected bluntly down to the bone and drilled and then placed our distal Synthes blade given her osteoporotic bone. At that point, we had great fixation distally. Without moving the leg, we then performed perfect sycuan technique on the proximal interlocking screws. I made 2 stab wound incisions, dissected down to bone with a hemostat and placed 2 interlocking screws on the proximal aspect of the nail. At that point, final images were obtained. We had good implant positioning. No obvious fractures of the femoral neck under C-arm imaging, both on AP, lateral, and rotationary planes. Our implants were appropriately positioned, the fracture was well aligned. At that point, we copiously irrigated all sites with normal saline, closed the deep layer with #1 Vicryl, approximated the subcu layer with 2-0 Vicryl, approximated the skin with dixie. Xeroform was placed over the incision site followed by 4x4s, ABD pad, and Omnipor tape. We then placed 30 mL of 0.25% Marcaine around all incision sites for postoperative pain control. At that point, she was awakened from the general anesthetic, transferred to the hospital bed and transferred to PACU in stable condition. No complications at the end of the procedure. ASSESSMENT AND PLAN: An 78-year-old female status post retrograde nailing of the left femoral fracture. She will be touchdown weightbearing on the left lower extremity. We will see her in clinic in 2 weeks' time. She will likely need inpatient rehab. We will obtain PT order to assist in her care at this time. Job ID: [id number]
[2019-07-11] MEDS: Polyethylene Glycol 3350 17 GM Packet PO SCH (08:15)
[2019-07-11] MEDS: Ferrous Gluconate 324 MG TAB PO SCH (08:18)
[2019-07-11] MEDS: Senokot S 8.6-50 MG TAB PO SCH (08:18)
[2019-07-11] MEDS: Loratadine 10 MG TAB PO SCH (08:18)
[2019-07-11] MEDS: Hydrochlorothiazide 25 MG TAB PO SCH (08:19)
[2019-07-11] MEDS: Metoprolol Tartrate 50 MG TAB PO SCH (08:19)
[2019-07-11] MEDS: Gabapentin 100 MG CAP PO SCH (08:19)
[2019-07-11] MEDS ORDERED: Multivitamin W/ Minerals 1 TAB PO SCH (09:00)
[2019-07-11] MEDS ORDERED: Enoxaparin Sodium 40 MG/0.4 ML SYRINGE SC SCH (09:00)
[2019-07-11] MEDS ORDERED: Ascorbic Acid 500 mg Chewable Tablet PO SCH (09:00)
--- NOTE | 2019-07-11 09:09 | PRG ---
DATE OF SERVICE: 07/11/2019 SUBJECTIVE: Patient was seen and evaluated in her hospital bed. She is doing well. No adverse events overnight. She is tolerating p.o. intake. PHYSICAL EXAMINATION: Vital signs stable. Patient is afebrile. Evaluation of left lower extremity demonstrates dressing is clean, dry, intact. No surrounding erythema. No drainage. No excessive swelling of the calf, thigh, or foot. She has positive FHL/EHL/peroneal muscle activation. Secondary survey of bilateral upper extremities demonstrates no tenderness to palpation or pain on passive range of motion in bilateral shoulders, elbows, wrists, or hands. Evaluation of right lower extremity demonstrates no tenderness to palpation or pain on passive range of motion in the right hip, knee, ankle, or foot. She is neurovascularly intact throughout. LABORATORY DATA: White count 7.4, hemoglobin 8.1, hematocrit 24, platelets 146. Chemistry; sodium 135, potassium 3.9, chloride 102, bicarb 29, BUN 11, creatinine 0.65. Vitamin D is low at 26.8. ASSESSMENT/PLAN: An 78-year-old female status post retrograde nailing of a left distal femur fracture. She is 50% weightbearing on the left lower extremity. Ancef is complete for postop surgical prophylaxis. Physical therapy to evaluate and treat. Vitamin D deficiency, we will begin replacement. DISPOSITION: The patient is going to be transferred to inpatient rehab for mobilization and rehab purposes. We will see the patient back in our clinic in approximately 2 weeks time. We will arrange that followup. All other prescriptions were in the chart. Our plan was discussed in detail with the patient today, she verbalizes understanding. We will see her in clinic in approximately 2 weeks. Job ID: [id number]
[2019-07-11 10:39] VITALS: TEMP 98.1
[2019-07-11 12:30] VITALS: BP 102/64
--- NOTE | 2019-07-11 19:27 | DIS ---
DATE OF ADMISSION: 07/08/2019 DATE OF DISCHARGE: 07/11/2019 DISCHARGE ATTENDING: Dr. Green. CONSULTS: Orthopedic Surgery, Dr. Hays. PROCEDURES: On 07/09/2019, retrograde nailing of the left distal femur fracture by Dr. Hays. PRIMARY DIAGNOSES: Status post ground level fall, left spiral distal femur fracture, postop repair; acute traumatic pain; hyponatremia, improved; and an incidental finding of a 1.3 cm nodule in the right upper lobe. SECONDARY DIAGNOSES: History of hypertension; hypothyroidism; degenerative joint disease; atrial fibrillation, treated with ablation; and melanoma of the scalp. DISCHARGE MEDICATIONS: 1. Acetaminophen 500 mg q.6 hours. 2. Vitamin C 500 mg p.o. b.i.d. with meals. 3. Aspirin 81 mg p.o. daily. 4. Dulcolax as needed for constipation. 5. Cepastat lozenges as needed. 6. Zyrtec 10 mg p.o. daily. 7. Lovenox 40 mg subcu daily for VTE prophylaxis. 8. 1.2 mg p.o. q.7 days. 9. Fergon 324 mg p.o. b.i.d. 10. inhaler b.i.d. 11. Gabapentin 100 mg p.o. 3 times a day. 12. Hydrochlorothiazide 25 mg p.o. q.a.m. 13. Ibuprofen 600 mg p.o. q.8 hours p.r.n. 14. DuoNeb as needed. 15. Synthroid 75 mcg p.o. daily. 16. Milk of magnesia p.r.n. constipation. 17. Metoprolol 25 mg p.o. at bedtime and 50 mg p.o. daily. 18. Dulera inhaler. 19. Multivitamin one tablet p.o. daily. 20. Zofran 4 mg ODT p.r.n. q.6 hours. 21. Rosuvastatin 10 mg p.o. at bedtime. 22. Scopolamine patch 1.5 mg transdermal q.3 days as needed. 23. Zanaflex 4 mg q.i.d. p.r.n. 24. Tramadol 50 mg p.o. q.6 hours p.r.n. pain. No discontinued medications. HISTORY OF PRESENT ILLNESS AND HOSPITAL COURSE: This is an 78-year-old female who presented to the emergency room with left leg pain after falling in her garage. Patient lives at home alone. Reports ambulating without any assistance as normal when she lost her balance due to an uneven area in her garage causing her to fall. Patient did report hitting her head on her car, but no loss of consciousness. Patient recalls all events. Patient denies any chest pain, dizziness, or shortness of breath prior to the event. Patient denied any recent fever, chills, body aches, cough, shortness of breath, or any exposure to positive COVID-19. Patient was found to have a left distal femur fracture. Patient's pain was well controlled pre and postop. Patient did have some hyponatremia and was placed on a 1 L a day free-water restriction with unlimited Gatorade intake. Patient's hyponatremia did improve. Patient was able to work with Physical Therapy as she was 50% weightbearing only on her left lower extremity. Initially, patient thought she would be able to go home with assistance, but then realized that additional physical therapy would be required. Patient tolerated a regular diet. On the day of discharge, the patient was seen and evaluated by Dr. Green. The patient had no complaints or concerns. The patient's pain was well controlled. The patient's vital signs were stable on the day of discharge, and her exam was unremarkable including cardiopulmonary and GI exam. The patient was deemed stable for discharge to inpatient rehab for continued physical and occupational therapy. Patient was notified of an increased right upper lobe pulmonary nodule that was increased in size from prior exam. It was recommended the patient followup with PCP or Dr. Henriquez, whom she has seen previously for an outpatient chest CT. DISPOSITION: Stable. DISCHARGE INSTRUCTIONS: Location: Inpatient rehab. DIET: Regular diet. ORTHOPEDIC LIMITATIONS: 50% weightbearing left lower extremity, full range of motion of hip and knee. FOLLOWUP: Follow up with Dr. Hays in 2 weeks. Follow up with primary care physician or Dr. Henriquez in 3 months for evaluation of the increased pulmonary nodule. No need to follow up with Trauma Services. Please call for any questions. Job ID: [id number]
--- NOTE | 2019-07-12 15:33 | PQF ---
YOSI GARAY, MIRIAM [id number] [id number] CLINICAL DOCUMENTATION IMPROVEMENT CLARIFICATION FORM: ICD-10 Updated PLEASE DO AN ADDENDUM TO THE PROGRESS NOTE WITH ANY DOCUMENTATION UPDATES OR ADDITIONS AND CARRY THROUGH TO DC SUMMARY. THANK YOU. DATE: 07/12/2019 ATTN: Miriam Lopez Please exercise your independent, professional judgment in responding to the clarification form. Clinical indicators are provided on the bottom of this form for your review Please check appropriate box(s): [ ] Post-op anemia related to acute blood loss [ ] Post-op anemia without acute blood loss [ ] Anemia: [ ] Aplastic [ ] Nutritional [ ] Hemolytic [ ] Hereditary [ ] Acquired [ ] Chronic Anemia: [ ] Blood loss [ ] Hemolytic [ ] Simple [ ] Other [ ] Other diagnosis [ ] Unable to determine In addition, please specify: Present on Admission (POA): [ ] Yes [ ] No [ ] Unable to determine For continuity of documentation, please document condition throughout progress notes and discharge summary. Thank You. CLINICAL INDICATORS - SIGNS / SYMPTOMS / LABS / RESULTS AND LOCATION IN EMR Lab: Hemoglobin 07/07 12.0 07/08 10.7 07/09 8.5 07/10 8.1 * Operative Note 07/08 (Luedke): Estimated Blood Loss: 200 ml * Vital Signs (EMR): Pulse 07/07-07/08: 70 - 97 beats/min 07/09-07/10 90- 109 beats/min * PN 07/09 (Ponzio): - The patient had some nausea and dizzines when working with Physical therapy earlier this morning. - Postoperative Anemia RISK FACTORS / RESULTS AND LOCATION IN EMR * Operative Note 07/08 (Luedke): Retrograde intramedullary nailing of a left distal femur fracture. TREATMENTS / RESULTS AND LOCATION IN EMR * PN 07/09 (Ponzio): - Will continue the patient's iron and vitamin C for postoperative anemia. - We will repeat hemoglobin and hematocrit in the morning. * PN 07/10 (Luedke): Vitamin D deficiency, we will begin replacement * DC Summary 07/10 (Ponzio): Fergon 324 mg PO daily Thank you, Monika (This form is maintained as a part of the permanent medical record) 2014 [employer]. All Rights Reserved Monika Pritchard RN, [email or web address] [email or web address] cell phone: [email or web address]
== END 2019-07-11 14:30 | DRG 481 ==
LOC: ERS 14:47 → SURG A 17:09
PROVIDERS: ADMIT Surgery; ATTEND Surgery
PROC: 0QSC06Z Reposition Left Lower Femur with Intramedullary Internal Fixation Device, Open Approach (ICD-10-PCS; principal; 2019-07-09)
DX: S72.402A Unspecified fracture of lower end of left femur, initial encounter for closed fracture (principal); E87.1 Hypo-osmolality and hyponatremia; R91.1 Solitary pulmonary nodule; I10 Essential (primary) hypertension; E03.9 Hypothyroidism, unspecified; I48.91 Unspecified atrial fibrillation; M19.90 Unspecified osteoarthritis, unspecified site; E55.9 Vitamin D deficiency, unspecified; S09.90XA Unspecified injury of head, initial encounter; W01.198A Fall on same level from slipping, tripping and stumbling with subsequent striking against other object, initial encounter; D64.9 Anemia, unspecified; Y92.008 Other place in unspecified non-institutional (private) residence as the place of occurrence of the external cause; Z85.820 Personal history of malignant melanoma of skin; Z87.891 Personal history of nicotine dependence; Z79.82 Long term (current) use of aspirin
CPT/HCPCS: 36415; 51702; 70450; 71045; 72125; 72170; 76000; 80048; 80053; 82306; 83735; 84100; 85007; 85025; 85027; 85610; 85730; 93005; 96361; 96374; 96375; C1713; C1769; G0390; J0690; J1100; J1650; J2001; J2270; J2370; J2405; J2704; J3010; J3475; J3490; S0020

== ENCOUNTER 2020-03-14 13:01 | Outpatient (CLI) | payer MEDICARE, BC ==
--- NOTE | 2020-03-14 15:24 | MRI ---
MRI OF THE LUMBAR SPINE WITH AND WITHOUT CONTRAST: 03/14/20 INDICATIONS: Lumbar stenosis with claudication. Low back pain. Comparison made to MRI of the lumbar spine dated 10/04/15. FINDINGS: there is a transitional vertebra which is labeled L5 on this study. Rudimentary ribs at the T12 level . The lumbar vertebrae maintain height. Moderate degenerative changes at all levels with anterior and l ateral osteophytes. Degenerative disc changes at all levels of the lumbar spine with loss of disc spa ce throughout. Vacuum phenomenon noted at multiple levels. L1-2: Broad based disc bulge flattens the thecal sac. Moderate facet and ligamentous hypertrophy. Mod erate central canal stenosis. Mild left foraminal encroachment due to disc osteophyte complex and fac et hypertrophy. The stenosis at this level has progressed slightly since prior exam. L2-3: Diffuse disc bulge. Prominent facet hypertrophy. Moderate central canal stenosis. Bilateral for aminal stenosis, more severe on the left due to asymmetric disc. Stenosis at this level is similar to the prior exam. L3-4: Diffuse disc bulge. Facet hypertrophy. Moderate central canal stenosis. Mild bilateral foramina l stenosis. Stenosis at this level has progressed slightly since prior exam. L4-5: There is a broad based disc protrusion which is asymmetric to the right. There are facet arthro sis and hypertrophy. Mild to moderate central canal stenosis. Right foraminal stenosis due to asymmet marlon disc extending into the foraminal zone and the associated facet hypertrophy. The findings at this level are similar to the prior study. L5-S1: Broad based disc bulge. Posterior laminectomy change. Facet hypertrophy. Mild central canal st enosis. Right foraminal stenosis secondary to asymmetric disc into the foraminal zone and facet hyper trophy. Findings at this level are similar to the prior study. IMPRESSION: Multilevel degenerative disc changes throughout the lumbar spine with description at each level noted above. POS: AGW
== END 2020-03-14 13:02 | disposition home or self-care (01) ==
LOC: TBSIIMAG 13:01
PROVIDERS: ATTEND Anesthesiology Pain Medicine
DX: M48.062 Spinal stenosis, lumbar region with neurogenic claudication (principal); M51.36 Other intervertebral disc degeneration, lumbar region
CPT/HCPCS: 72158; 82565

== ENCOUNTER 2020-06-20 10:36 | Outpatient (CLI) | payer MEDICARE, BC ==
[2020-06-20 11:39] LABS: Hemoglobin 12.9 g/dL (12.0-15.5); Mean Corpuscular HGB CONC 32.3 g/dL (32.0-36.0); Mean Corpuscular Volume 89.9 fl (81.6-98.3); Mean Platelet Volume 11.8 fl (7.4-10.4); Platelet Count 233 10x3/uL (150-450); RBC Distribution Width 12.9 % (11.5-14.5); Red Blood Cell (RBC) Count 4.45 10x6/uL (3.90-5.03)
[2020-06-20 12:02] LABS: Anion Gap 12 mmol/L (10-20); BUN (Urea Nitrogen) 17 mg/dL (9.8-20.1); Calc. Creatinine Clearance 0 mL/min (70-130); Calcium 9.5 mg/dL (7.8-10.44); Carbon Dioxide 30 mmol/L (23-31); Chloride 101 mmol/L (98-107); Glucose 89 mg/dL (83-110); Potassium 4.1 mmol/L (3.5-5.1); Sodium 139 mmol/L (136-145)
[2020-06-20 19:46] LABS: SARS-CoV-2 PCR by NAA Not Detected (NotDetected)
== END 2020-06-20 10:37 | disposition home or self-care (01) ==
LOC: LABBT 10:36
PROVIDERS: ATTEND Neurological Surgery
DX: Z01.818 Encounter for other preprocedural examination (principal); M43.16 Spondylolisthesis, lumbar region; Z20.822 Contact with and (suspected) exposure to COVID-19
CPT/HCPCS: 80048; 85027; U0003; U0005; 87635; 93005; 93010

== ENCOUNTER 2020-06-25 08:25 | Inpatient (IN) | payer MEDICARE, BC ==
[2020-06-21 14:57] VITALS: BMI 30.2
[2020-06-25] MEDS ORDERED: Fentanyl 100 MCG/2 ML VIAL ONE ×3 (10:38→13:00)
[2020-06-25] MEDS ORDERED: PROPOFOL 200 MG/20 ML VIAL ONE (11:03)
[2020-06-25] MEDS ORDERED: Rocuronium Bromide 10 MG/ML (10ML VIAL) ONE (11:03)
[2020-06-25] MEDS ORDERED: Ondansetron PF 4 MG/2 ML Vial ONE (11:03)
[2020-06-25] MEDS ORDERED: Lidocaine 1% PF 5 ML VIAL ONE (11:03)
[2020-06-25] MEDS ORDERED: PHENYLEPHRINE-NS 100 MCG/ML 10 ML SYRINGE ONE (11:03)
[2020-06-25] MEDS ORDERED: ePHEDrine 50 MG/ML VIAL ONE (11:03)
[2020-06-25] MEDS ORDERED: Dexamethasone 20 MG/5 ML VIAL ONE (11:03)
[2020-06-25] MEDS ORDERED: Glycopyrrolate 0.2 MG/ML 5 ML SYRINGE ONE (11:03)
[2020-06-25] MEDS ORDERED: Promethazine HCl 25 MG/ML VIAL SLOW IVP PRN (12:33)
[2020-06-25] MEDS ORDERED: Ondansetron HCl/PF 4 MG/2 ML Vial IVP PRN (12:33)
[2020-06-25] MEDS ORDERED: Promethazine HCl 25 MG/ML VIAL IM PRN ×2 (12:33→15:15)
[2020-06-25] MEDS ORDERED: Ondansetron PF 4 MG/2 ML Vial IVP PRN (15:11)
[2020-06-25] MEDS ORDERED: traMADol HCl 50 MG TAB PO PRN ×2 (15:15)
[2020-06-25] MEDS ORDERED: Morphine 2 MG/ML VIAL SLOW IVP PRN (15:15)
[2020-06-25] MEDS ORDERED: tiZANidine HCl 4 MG TAB PO PRN (15:15)
[2020-06-25] MEDS ORDERED: Promethazine 25 MG TAB PO PRN (15:15)
[2020-06-25] MEDS ORDERED: Morphine 4 MG/ML VIAL SLOW IVP PRN (15:15)
[2020-06-25] MEDS ORDERED: diphenhydrAMINE 50 MG/ML VIAL IVP PRN (15:15)
[2020-06-25] MEDS ORDERED: Acetaminophen/Codeine 30-300mg Tablet PO PRN (15:15)
[2020-06-25] MEDS ORDERED: Milk Of Magnesia 30 ML UDCUP PO PRN (15:15)
[2020-06-25] MEDS ORDERED: Mag-Al 1200 mg/1200 mg/30 ML UDCUP PO PRN (15:15)
[2020-06-25] MEDS ORDERED: Promethazine HCl 12.5 MG SUPP PR PRN (15:15)
[2020-06-25] MEDS ORDERED: diphenhydrAMINE 25 MG CAP PO PRN (15:15)
[2020-06-25] MEDS: Dexamethasone 4 mg/ml Vial SLOW IVP SCH ×2 (15:52→22:49)
[2020-06-25] MEDS: Sodium Chloride 0.9% 1,000 ML IV SCH (15:56)
[2020-06-25] MEDS: Acetaminophen/Codeine 30-300mg Tablet PO PRN ×2 (15:59→20:48)
[2020-06-25] MEDS: CEFAZOLIN 2 GM in Premix Bag 1 BAG IVPB SCH (18:16)
[2020-06-25] MEDS: Rosuvastatin 10 MG TAB PO SCH (20:45)
[2020-06-25] MEDS: Metoprolol Tartrate 25 MG TAB PO SCH (20:45)
[2020-06-26] MEDS: CEFAZOLIN 2 GM in Premix Bag 1 BAG IVPB SCH (01:05)
[2020-06-26] MEDS: Sodium Chloride 0.9% 1,000 ML IV SCH ×2 (03:35→16:53)
[2020-06-26] MEDS: Levothyroxine Sodium 75 MCG TAB PO SCH (06:08)
[2020-06-26] MEDS: Dexamethasone 4 mg/ml Vial SLOW IVP SCH ×2 (06:38→14:50)
[2020-06-26] MEDS: Mometasone 100 MCG/Formoterol 5 MCG 120 PUFF INHALER INH SCH ×2 (07:34→18:56)
[2020-06-26] MEDS: Polyethylene Glycol 3350 17 GM Packet PO SCH (07:52)
[2020-06-26] MEDS: Multivitamin W/ Minerals 1 TAB PO SCH (07:52)
[2020-06-26] MEDS: Hydrochlorothiazide 25 MG TAB PO SCH (07:53)
[2020-06-26] MEDS: Metoprolol Tartrate 50 MG TAB PO SCH (07:53)
[2020-06-26] MEDS: Loratadine 10 MG TAB PO SCH (07:53)
[2020-06-26] MEDS: Acetaminophen/Codeine 30-300mg Tablet PO PRN (10:04)
[2020-06-26] MEDS ORDERED: Dexamethasone 4 mg/ml Vial SLOW IVP SCH (20:11)
[2020-06-26] MEDS: Metoprolol Tartrate 25 MG TAB PO SCH (20:18)
[2020-06-26] MEDS: Rosuvastatin 10 MG TAB PO SCH (20:18)
[2020-06-26] MEDS: Acetaminophen 500 MG TAB PO PRN (23:32)
[2020-06-27] MEDS: Levothyroxine Sodium 75 MCG TAB PO SCH (06:13)
[2020-06-27] MEDS: Sodium Chloride 0.9% 1,000 ML IV SCH ×2 (06:43→20:24)
[2020-06-27] MEDS: Mometasone 100 MCG/Formoterol 5 MCG 120 PUFF INHALER INH SCH ×2 (06:53→18:07)
[2020-06-27] MEDS: Hydrochlorothiazide 25 MG TAB PO SCH (09:37)
[2020-06-27] MEDS: Metoprolol Tartrate 50 MG TAB PO SCH (09:37)
[2020-06-27] MEDS: Polyethylene Glycol 3350 17 GM Packet PO SCH (09:37)
[2020-06-27] MEDS: Multivitamin W/ Minerals 1 TAB PO SCH (09:37)
[2020-06-27] MEDS: Dexamethasone 1 MG TAB PO SCH ×2 (09:38→17:38)
[2020-06-27] MEDS: Loratadine 10 MG TAB PO SCH (09:38)
[2020-06-27] MEDS: Metoprolol Tartrate 25 MG TAB PO SCH (19:59)
[2020-06-27] MEDS: Rosuvastatin 10 MG TAB PO SCH (19:59)
[2020-06-27] MEDS: Acetaminophen 500 MG TAB PO PRN (23:50)
[2020-06-28] MEDS: Levothyroxine Sodium 75 MCG TAB PO SCH (05:25)
[2020-06-28] MEDS: Mometasone 100 MCG/Formoterol 5 MCG 120 PUFF INHALER INH SCH (06:58)
[2020-06-28] MEDS: Dexamethasone 1 MG TAB PO SCH ×2 (09:24→16:42)
[2020-06-28] MEDS: Multivitamin W/ Minerals 1 TAB PO SCH (09:26)
[2020-06-28] MEDS: Metoprolol Tartrate 50 MG TAB PO SCH (09:26)
[2020-06-28] MEDS: Hydrochlorothiazide 25 MG TAB PO SCH (09:27)
[2020-06-28] MEDS: Polyethylene Glycol 3350 17 GM Packet PO SCH (09:27)
[2020-06-28] MEDS: Loratadine 10 MG TAB PO SCH (09:27)
[2020-06-28] MEDS: Sodium Chloride 0.9% 1,000 ML IV SCH (11:02)
[2020-06-28 11:44] VITALS: BP 167/97; TEMP 97.7
[2020-06-29] MEDS ORDERED: Dexamethasone 1 MG TAB PO SCH (08:00)
== END 2020-06-28 18:45 | DRG 454 ==
LOC: SDC 08:25 → SURG B 12:53 → OBSVTOIN 06-27 10:57
PROVIDERS: ADMIT Neurological Surgery; ATTEND Neurological Surgery
PROC: 0SG0071 Fusion of Lumbar Vertebral Joint with Autologous Tissue Substitute, Posterior Approach, Posterior Column, Open Approach (ICD-10-PCS; principal; 2020-06-25)
PROC: 0SG00KJ Fusion of Lumbar Vertebral Joint with Nonautologous Tissue Substitute, Posterior Approach, Anterior Column, Open Approach (ICD-10-PCS; 2020-06-25)
PROC: 01NB0ZZ Release Lumbar Nerve, Open Approach (ICD-10-PCS; 2020-06-25)
PROC: 00QT0ZZ Repair Spinal Meninges, Open Approach (ICD-10-PCS; 2020-06-25)
DX: M48.061 Spinal stenosis, lumbar region without neurogenic claudication (principal); G96.09 Other spinal cerebrospinal fluid leak; M43.16 Spondylolisthesis, lumbar region; I10 Essential (primary) hypertension; E78.5 Hyperlipidemia, unspecified; Z20.822 Contact with and (suspected) exposure to COVID-19; Y83.8 Other surgical procedures as the cause of abnormal reaction of the patient, or of later complication, without mention of misadventure at the time of the procedure; M21.371 Foot drop, right foot
CPT/HCPCS: 72131; 76000; 96374; 96375; 96376; C1713; C1768; G0378; J0690; J1100; J2405; J2704; J3010; J3370; J3490; J8540

== ENCOUNTER 2020-07-12 15:39 | Inpatient (IN) | payer MEDICARE, BC ==
[2020-07-12 16:36] VITALS: BMI 30.2
[2020-07-12] MEDS ORDERED: Ondansetron PF 4 MG/2 ML Vial SLOW IVP PRN (16:36)
[2020-07-12] MEDS ORDERED: Mag-Al 1200 mg/1200 mg/30 ML UDCUP PO PRN (16:45)
[2020-07-12] MEDS ORDERED: diphenhydrAMINE 25 MG CAP PO PRN (16:45)
[2020-07-12] MEDS ORDERED: Promethazine HCl 25 MG/ML VIAL IM PRN (16:45)
[2020-07-12] MEDS ORDERED: traMADol HCl 50 MG TAB PO PRN (16:45)
[2020-07-12] MEDS ORDERED: Morphine 4 MG/ML VIAL SLOW IVP PRN (16:45)
[2020-07-12] MEDS ORDERED: diphenhydrAMINE 50 MG/ML VIAL IVP PRN (16:45)
[2020-07-12] MEDS ORDERED: Acetaminophen/Codeine 30-300mg Tablet PO PRN ×2 (16:45)
[2020-07-12] MEDS ORDERED: Promethazine 25 MG TAB PO PRN (16:45)
[2020-07-12] MEDS ORDERED: Morphine 2 MG/ML VIAL SLOW IVP PRN (16:45)
[2020-07-12] MEDS ORDERED: tiZANidine HCl 4 MG TAB PO PRN (16:45)
[2020-07-12] MEDS ORDERED: Milk Of Magnesia 30 ML UDCUP PO PRN (16:45)
[2020-07-12] MEDS: Sodium Chloride 0.9% 1,000 ML IV SCH (17:00)
[2020-07-12] MEDS: traMADol HCl 50 MG TAB PO PRN (20:47)
[2020-07-12] MEDS: CEFAZOLIN 2 GM in Premix Bag 1 BAG IVPB SCH (20:48)
[2020-07-13] MEDS: CEFAZOLIN 2 GM in Premix Bag 1 BAG IVPB SCH ×3 (05:42→21:49)
[2020-07-13] MEDS: Sodium Chloride 0.9% 1,000 ML IV SCH ×2 (05:42→23:08)
[2020-07-13] MEDS: traMADol HCl 50 MG TAB PO PRN (05:45)
[2020-07-13 07:21] LABS: SARS-CoV-2 NAA Rapid Test Not Detected (NotDetected)
[2020-07-13] MEDS ORDERED: Levothyroxine Sodium 75 MCG TAB PO SCH (08:45)
[2020-07-13] MEDS: Acetaminophen 500 MG TAB PO SCH ×2 (08:59→21:04)
[2020-07-13] MEDS: Metoprolol Tartrate 50 MG TAB PO SCH ×2 (09:00→09:01)
[2020-07-13] MEDS ORDERED: hydrALAZINE 20 MG/ML VIAL SLOW IVP PRN (13:37)
[2020-07-13] MEDS: Rosuvastatin 10 MG TAB PO SCH (21:04)
[2020-07-13] MEDS: Metoprolol Tartrate 25 MG TAB PO SCH (21:04)
[2020-07-14] MEDS: Acetaminophen 500 MG TAB PO SCH ×2 (05:11→14:17)
[2020-07-14] MEDS: Levothyroxine Sodium 75 MCG TAB PO SCH (05:11)
[2020-07-14] MEDS: CEFAZOLIN 2 GM in Premix Bag 1 BAG IVPB SCH ×3 (06:45→21:42)
[2020-07-14] MEDS: Metoprolol Tartrate 50 MG TAB PO SCH (09:05)
[2020-07-14] MEDS ORDERED: Polyethylene Glycol 3350 17 GM Packet PO PRN (09:07)
[2020-07-14] MEDS: Sodium Chloride 0.9% 1,000 ML IV SCH ×2 (12:42→23:16)
[2020-07-14] MEDS: traMADol HCl 50 MG TAB PO PRN (19:25)
[2020-07-14] MEDS: Metoprolol Tartrate 25 MG TAB PO SCH (20:25)
[2020-07-14] MEDS: Acetaminophen 325 MG TAB PO PRN (22:53)
[2020-07-15] MEDS: CEFAZOLIN 2 GM in Premix Bag 1 BAG IVPB SCH ×3 (04:58→20:59)
[2020-07-15] MEDS: Levothyroxine Sodium 75 MCG TAB PO SCH (04:59)
[2020-07-15] MEDS: Acetaminophen 325 MG TAB PO PRN (04:59)
[2020-07-15] MEDS: traMADol HCl 50 MG TAB PO PRN ×2 (07:37→21:11)
[2020-07-15] MEDS: Metoprolol Tartrate 50 MG TAB PO SCH (08:28)
[2020-07-15] MEDS: Sodium Chloride 0.9% 1,000 ML IV SCH (12:57)
[2020-07-15] MEDS: Rosuvastatin 10 MG TAB PO SCH (20:59)
[2020-07-15] MEDS: Metoprolol Tartrate 25 MG TAB PO SCH (20:59)
[2020-07-16] MEDS: traMADol HCl 50 MG TAB PO PRN ×2 (03:26→21:07)
[2020-07-16] MEDS: Sodium Chloride 0.9% 1,000 ML IV SCH ×2 (03:26→16:53)
[2020-07-16] MEDS: CEFAZOLIN 2 GM in Premix Bag 1 BAG IVPB SCH ×3 (05:03→21:08)
[2020-07-16] MEDS: Levothyroxine Sodium 75 MCG TAB PO SCH (05:03)
[2020-07-16] MEDS: Metoprolol Tartrate 50 MG TAB PO SCH (08:09)
[2020-07-16] MEDS: Acetaminophen 325 MG TAB PO PRN (17:32)
[2020-07-16] MEDS: Metoprolol Tartrate 25 MG TAB PO SCH (21:08)
[2020-07-17] MEDS: Acetaminophen 325 MG TAB PO PRN ×2 (04:01→20:53)
[2020-07-17] MEDS: Sodium Chloride 0.9% 1,000 ML IV SCH ×2 (05:05→15:11)
[2020-07-17] MEDS: Levothyroxine Sodium 75 MCG TAB PO SCH (05:06)
[2020-07-17] MEDS: CEFAZOLIN 2 GM in Premix Bag 1 BAG IVPB SCH ×3 (05:07→21:05)
[2020-07-17] MEDS: Metoprolol Tartrate 50 MG TAB PO SCH (07:55)
[2020-07-17] MEDS: Metoprolol Tartrate 25 MG TAB PO SCH (20:54)
[2020-07-17] MEDS: Rosuvastatin 10 MG TAB PO SCH (20:54)
[2020-07-18] MEDS: CEFAZOLIN 2 GM in Premix Bag 1 BAG IVPB SCH ×3 (05:05→21:10)
[2020-07-18] MEDS: Levothyroxine Sodium 75 MCG TAB PO SCH (05:05)
[2020-07-18] MEDS: Sodium Chloride 0.9% 1,000 ML IV SCH ×2 (06:14→14:55)
[2020-07-18] MEDS: Metoprolol Tartrate 50 MG TAB PO SCH (07:33)
[2020-07-18] MEDS: Loratadine 10 MG TAB PO SCH (07:33)
[2020-07-18] MEDS: Hydrochlorothiazide 25 MG TAB PO SCH (07:33)
[2020-07-18] MEDS: Acetaminophen 325 MG TAB PO PRN ×2 (07:33→15:46)
[2020-07-18] MEDS: traMADol HCl 50 MG TAB PO PRN (17:17)
[2020-07-18] MEDS: Metoprolol Tartrate 25 MG TAB PO SCH (20:54)
[2020-07-19] MEDS: CEFAZOLIN 2 GM in Premix Bag 1 BAG IVPB SCH ×3 (05:30→21:11)
[2020-07-19] MEDS: Levothyroxine Sodium 75 MCG TAB PO SCH (05:30)
[2020-07-19] MEDS: Metoprolol Tartrate 50 MG TAB PO SCH (07:53)
[2020-07-19] MEDS: Acetaminophen 325 MG TAB PO PRN ×2 (07:53→21:10)
[2020-07-19] MEDS: Loratadine 10 MG TAB PO SCH (07:53)
[2020-07-19] MEDS: Hydrochlorothiazide 25 MG TAB PO SCH (07:54)
[2020-07-19] MEDS: Sodium Chloride 0.9% 1,000 ML IV SCH ×2 (10:13→23:20)
[2020-07-19] MEDS: Rosuvastatin 10 MG TAB PO SCH (21:11)
[2020-07-19] MEDS: Metoprolol Tartrate 25 MG TAB PO SCH (21:11)
[2020-07-20] MEDS: Levothyroxine Sodium 75 MCG TAB PO SCH (05:23)
[2020-07-20] MEDS: CEFAZOLIN 2 GM in Premix Bag 1 BAG IVPB SCH (05:23)
[2020-07-20] MEDS: Metoprolol Tartrate 50 MG TAB PO SCH (08:02)
[2020-07-20] MEDS: Hydrochlorothiazide 25 MG TAB PO SCH (08:02)
[2020-07-20] MEDS: Loratadine 10 MG TAB PO SCH (08:02)
[2020-07-20] MEDS: Acetaminophen 325 MG TAB PO PRN (08:02)
[2020-07-20 08:03] VITALS: BP 146/82; TEMP 98
[2020-07-20] MEDS: Sodium Chloride 0.9% 1,000 ML IV SCH (08:04)
[2020-07-20] MEDS ORDERED: Lidocaine 1% (PF) 30 ML VIAL ONE (08:23)
== END 2020-07-20 11:30 | disposition home or self-care (01) | DRG 93 ==
LOC: SURG B 15:50
PROVIDERS: ADMIT Neurological Surgery; ATTEND Neurological Surgery
PROC: 009U30Z Drainage of Spinal Canal with Drainage Device, Percutaneous Approach (ICD-10-PCS; principal; 2020-07-13)
DX: G96.09 Other spinal cerebrospinal fluid leak (principal); E78.5 Hyperlipidemia, unspecified; I10 Essential (primary) hypertension; E03.9 Hypothyroidism, unspecified; Z82.49 Family history of ischemic heart disease and other diseases of the circulatory system; Y83.8 Other surgical procedures as the cause of abnormal reaction of the patient, or of later complication, without mention of misadventure at the time of the procedure
CPT/HCPCS: 77002; J0690; U0002

== ENCOUNTER 2020-07-31 13:05 | Outpatient (CLI) | payer MEDICARE, BC | END 2020-07-31 13:06 | disposition home or self-care (01) | LOC: TBSIIMAG 13:05 | PROVIDERS: ATTEND Physician Assistant | DX: M48.062 Spinal stenosis, lumbar region with neurogenic claudication (principal); M43.16 Spondylolisthesis, lumbar region; Z98.1 Arthrodesis status | CPT/HCPCS: 72100 ==

== ENCOUNTER 2020-09-05 13:18 | Outpatient (CLI) | payer MEDICARE, BC | END 2020-09-05 13:19 | disposition home or self-care (01) | LOC: TBSIIMAG 13:18 | PROVIDERS: ATTEND Neurological Surgery | DX: M48.062 Spinal stenosis, lumbar region with neurogenic claudication (principal); M47.816 Spondylosis without myelopathy or radiculopathy, lumbar region; Z98.890 Other specified postprocedural states | CPT/HCPCS: 72100 ==

== ENCOUNTER 2020-12-25 12:36 | Outpatient (CLI) | payer MEDICARE, BC | END 2020-12-25 12:37 | disposition home or self-care (01) | LOC: TBSIIMAG 12:36 | PROVIDERS: ATTEND Neurological Surgery | DX: M47.26 Other spondylosis with radiculopathy, lumbar region (principal) | CPT/HCPCS: 72100 ==